=== PATIENT | male | born 1945 | race Caucasian/White ===

== ENCOUNTER 2017-07-05 13:12 | Observation (INO) | payer MEDICARE ==
[~2017-07-05 13:12] MED LIST: Iopamidol 370 76% 100 ML VIAL ONE
[2017-07-05 13:57] LABS: #Basophils 0.1 thou/uL (0.0-0.2); #Eosinphils 0.2 thou/uL (0.0-0.7); #Lymphocytes 2.6 thou/uL (1.20-3.40); #Monocytes 0.4 thou/uL (0.11-0.59); #Neutrophils 2.8 thou/uL (1.40-6.50); %Basophils 1.5 % (0.0-1.0); %Eosinophils 3.7 % (0.0-10.0); %Lymphocytes 41.8 % (21.0-51.0); %Monocytes 7.2 % (0.0-10.0); Hematocrit 48.8 % (42.0-52.0); Mean Platelet Volume 7.1 fL (7.4-10.4); Red Blood Cell (RBC) Count 5.47 mill/uL (4.70-6.10); White Blood Cell (WBC) Count 6.2 thou/uL (4.8-10.8)
[2017-07-05 14:27] LABS: ALT (SGPT) 90 U/L (8-55); AST (SGOT) 82 U/L (5-34); Alkaline Phosphatase 126 U/L (40-150); Anion Gap 13 mmol/L (10-20); BUN (Urea Nitrogen) 12 mg/dL (8.4-25.7); Bilirubin, Total 0.9 mg/dL (0.2-1.2); Calc. Creatinine Clearance 0 mL/min (70-130); Calcium 9.3 mg/dL (7.8-10.44); Carbon Dioxide 23 mmol/L (23-31); Chloride 106 mmol/L (98-107); Estimated GFR-MDRD 72; Magnesium 2.2 mg/dL (1.6-2.6); Protein, Total 6.9 g/dL (5.8-8.1)
[2017-07-05 14:28] LABS: Troponin I Less than 0.010 ng/mL (< 0.028)
--- NOTE | 2017-07-05 14:39 | RAD ---
CHEST 1 VIEW: HISTORY: Shortness of breath. COMPARISON: None. FINDINGS: Lungs are clear. No pneumothorax or effusion. Cardiac silhouette and mediastinal contours are with in normal limits. No acute osseous abnormality. IMPRESSION: No acute intrathoracic abnormality. POS: [facility]
[2017-07-05] MEDS ORDERED: Mag-Al 1200 mg/1200 mg/30 ML UDCUP PO PRN (17:06)
[2017-07-05] MEDS ORDERED: Sodium Chloride 0.65% Nasal 44 ML BOT EA NARE PRN (17:06)
[2017-07-05] MEDS ORDERED: Loperamide HCl 2 MG CAP PO PRN (17:06)
[2017-07-05] MEDS ORDERED: Senokot 8.6 MG TAB PO PRN (17:06)
[2017-07-05] MEDS ORDERED: Milk Of Magnesia 30 ML UDCUP PO PRN (17:06)
[2017-07-05] MEDS ORDERED: Ondansetron HCl/PF 4 MG/2 ML Vial IVP PRN (17:06)
[2017-07-05] MEDS ORDERED: Ondansetron ODT 4 MG TAB PO PRN (17:06)
[2017-07-05] MEDS ORDERED: Nitroglycerin 0.4 MG TAB (25 Tab Bottle) SL PRN (17:06)
[2017-07-05] MEDS ORDERED: Eucerin (Mineral Oil/Petrolatum,White) 30 gm Jar TOP PRN (17:06)
[2017-07-05] MEDS ORDERED: Loratadine 10 MG TAB PO PRN (17:06)
[2017-07-05] MEDS ORDERED: HYDROcodone/Acetaminophen 5/325 mg Tablet PO PRN (17:06)
[2017-07-05] MEDS ORDERED: Zolpidem Tartrate 5 MG TAB PO PRN (17:06)
[2017-07-05] MEDS ORDERED: Diabetic Tussin 200 MG/10 ML UDCUP PO PRN (17:06)
[2017-07-05] MEDS ORDERED: Acetaminophen 325 MG TAB PO PRN (17:06)
[2017-07-05 17:12] VITALS: BMI 36.7
[2017-07-05] MEDS ORDERED: Aspirin 325 MG TAB PO SCH (17:30)
[2017-07-05 18:35] LABS: Troponin I Less than 0.010 ng/mL (< 0.028)
--- NOTE | 2017-07-05 19:52 | CT ---
CT OF THE BRAIN WITHOUT CONTRAST: 07/05/17 COMPARISON: None. HISTORY: Headache. TECHNIQUE: Multiple contiguous axial images were obtained in a CT of the brain without contrast. FINDINGS: The brain is normal in morphology and attenuation without focal lesions or confluent areas of infarc tion. There is no evidence of hydrocephalus, intracranial hemorrhage or extra-axial fluid collection . The calvarium and overlying soft tissues are unremarkable. The visualized paranasal sinuses and mast oid air cells are well aerated. IMPRESSION: No evidence of acute intracranial abnormality. POS: [facility]
--- NOTE | 2017-07-05 20:04 | CT ---
CTA OF THE CHEST WITH CONTRAST 07/05/17 COMPARISON: None. HISTORY: Elevated D-dimer and syncope. TECHNIQUE: Multiple contiguous axial images were obtained in a CTA of the chest with contrast per pulmonary emb olism protocol. 3D oblique MIP reformats and direct coronal reformats were performed. FINDINGS: The pulmonary arteries are well opacified without filling defects to suggest pulmonary emboli. Calci fications are seen in the coronary arteries. No hilar or mediastinal lymphadenopathy are seen. The heart is upper limits of normal in size. No focal infiltrates are seen in the lungs. No pneumothorax or pleural effusion are seen. No suspici ous pulmonary masses present. The visualized subdiaphragmatic structures are unremarkable. The patient is status post cholecystect oliverio. Degenerative changes and postsurgical changes are seen in the spine. IMPRESSION: No evidence of pulmonary thromboembolism. POS: [facility]
[2017-07-05] MEDS ORDERED: Famotidine 20 MG TAB PO SCH (21:00)
--- NOTE | 2017-07-05 21:16 | HP ---
PRIMARY CARE PHYSICIAN: Devaughn Ford M.D. REASON FOR ADMISSION: Syncope, dyspnea, and dizziness on exertion. HISTORY OF PRESENT ILLNESS: A 71-year-old male who has a history of headache on the right side of o ccipitoparietal area as well as neck pain. This is going on for about a week or two. The patient s aw primary care physician. At that time, patient was also having some facial rash on the left side of face and that is why patient was given Augmentin. With antibiotic therapy, rash was improved, bu t patient's headache was not improving. Patient requested CT brain to primary care physician, but h e was instructed to wait until antibiotic therapy is over. At this point, patient is still feeling on and off dull pain on his right side of scalp as well as on the neck. Yesterday, the patient was working with his horses and he all of suddenly felt dizzy, diaphoreses, a nd shortness of breath. Patient has to come to his home and he was rested. He took some aspirin an d whole day he rested at home. He did not have any further that episode. He denies any chest pain, but he was feeling uneasiness. He denies any palpitation. He denies complete loss of consciousnes s. He denies any fever or cough. He denies any constipation, diarrhea, melena, hematochezia. Today, he came to the emergency room for evaluation. This patient in the emergency room when the nu rse was taking IV, at that time, patient again passed out for 15 seconds and that was witnessed sync opal episode by nurses. Patient was diaphoretic, nauseated and he was also feeling funny in his [facility]. Initial evaluation in the emergency room including chest x-ray and blood test was unremarkable. At this point, we are admitting this patient for further evaluation. This patient does not have any fo sonia neurological deficit. He denies any seizure activity. He denies any orthopnea, PND or leg swel ling. He denies any fever or chills. He denies any UTI symptoms. REVIEW OF SYSTEMS: The following complete review of systems was negative, unless otherwise mentione d in the HPI or below: Constitutional: Weight loss or gain, ability to conduct usual activities. Skin: Rash, itching. Eyes: Double vision, pain. ENT/Mouth: Nose bleeding, neck stiffness, pain, tenderness. Cardiovascular: Palpitations, dyspnea on exertion, orthopnea. Respiratory: Shortness of breath, wheezing, cough, hemoptysis, fever or night sweats. Gastrointestinal: Poor appetite, abdominal pain, heartburn, nausea, vomiting, constipation, or diar andres. Genitourinary: Urgency, frequency, dysuria, nocturia. Musculoskeletal: Pain, swelling. Neurologic/Psychiatric: Anxiety, depression. Allergy/Immunologic: Skin rash, bleeding tendency. Please see my HPI for pertinent positive and negative. All other review of systems reviewed and neg ative except as mentioned in the HPI. PAST MEDICAL HISTORY: The patient denies any previous medical history. MEDICATIONS: Patient is not taking any medication. PAST SURGICAL HISTORY: Laminectomy in thoracic vertebra, tonsillectomy when he was kid, circumcisio n, cholecystectomy. PAST PSYCHIATRIC HISTORY: Reviewed and negative. SOCIAL HISTORY: Patient is . His is present at bedside in the emergency room. No hist ory of tobacco, alcohol or illicit drug abuse. FAMILY HISTORY: The patient's father had history of [place]. No strong family history of cancer or stro ke. ALLERGIES: No known drug allergies. CURRENT HOME MEDICATIONS: The patient is not taking any prescribed or non-prescribed medication. EMERGENCY ROOM COURSE: Reviewed. PHYSICAL EXAMINATION: VITAL SIGNS: On arrival, blood pressure 161/89, pulse 79, respiratory rate 16, temperature 98.2, sa turation 94% on room air, weight 115.6 kilograms. GENERAL: Patient is currently alert, awake, no obvious acute distress. HEAD: Normocephalic, atraumatic. EYES: Pupils round, reactive to light. Extraocular muscle intact. ENT: Oropharynx within normal limits. Moist mucous membranes. No oral lesions. No pharyngeal staci thema, no exudate. NECK: Supple. Range of motion is normal. No meningeal signs of irritation. LUNGS: Clear to auscultation without any rhonchi or rales. CARDIAC: S1 and S2 regular without any murmur. ABDOMEN: Soft, bowel sounds present, obesity present. No organomegaly, no mass, no suprapubic tend erness. BACK: Examination unremarkable, no CVA tenderness. EXTREMITIES: Upper extremity passive movements of all joints are normal. Lower extremity, no edema . Good peripheral pulsation. No calf tenderness. NEUROLOGIC: The patient is alert, oriented x3. Speech, normal. Motor 5/5 in all four limbs. Sens ation bilaterally symmetrical. Reflexes bilaterally symmetrical. Plantar bilateral flexor. PSYCHIATRIC: Normal affect. SKIN: No skin rash. HEMATOLOGICAL SYSTEM: No lymphadenopathy. IMAGING AND LABORATORY DATA: 1. EKG based on my review reveals normal sinus rhythm within normal limits. Chest x-ray based on m y review, no acute cardiopulmonary process. 2. CBC: WBC 6.2, hemoglobin 16.2, platelets 186. 3. BMP: Sodium 138, potassium 3.8, chloride 106, carbon dioxide 23, anion gap 13, BUN 12, creatini ne 1.03, glucose 110, and calcium 9.3. 4. Magnesium 2.2. 5. LFT: AST 82, ALT 19, alkaline phosphatase 126, albumin 3.9. 6. CK 61, CK-MB 1.4, troponin I less than 0.010, BNP 21.2. ASSESSMENT AND PLAN/IMPRESSION: 1. Syncope. This patient has witnessed an episode of syncope in the emergency room, suspected for orthostatic hypotension, but underlying arrhythmia cannot be entirely excluded, though when this pat ient had a syncopal episode, at that time zinc skimmer was surprisingly normal, but when they c hecked vitals, at that time his blood pressure was low in the emergency room. At this point, we dana l check orthostatic vitals. We will monitor on telemetry floor. This patient has second episode of similar problem and that is why we will closely monitor on telemetry floor. We will obtain echocar diography to assess ejection fraction and other structural abnormality. We will do serial cardiac e nzymes x3. We will also check D-dimer to rule out any thromboembolic disorder. If D-dimer is abnor mal, then we will perform CT angio chest. If D-dimer is negative and thromboembolic disorder is exc luded, then we will consider doing exercise Cardiolite stress test tomorrow morning to rule out unde rlying ischemia. We will check lipid profile for risk stratification. 2. Headache. Patient has a right-sided unilateral headache which has not improved for over a coupl e of weeks. At this point, we will obtain CT brain for further evaluation. Patient does not have a ny focal neurological deficit at this point. 3. Morbid obesity. Dietary education given, weight loss education given. Healthy lifestyle measur es discussed with the patient. 4. Hypertension without previous history of hypertension. When he presented to emergency room, he was hypertensive, but we will not start any antihypertensive medication at this point, but we will m onitor his vitals in hospital and if needed, we will start antihypertensive medication based on the readings. 5. Deep venous thrombosis prophylaxis not needed at this point because of low risk. 6. Gastrointestinal prophylaxis, Pepcid 20 mg p.o. b.i.d. 7. Code status: The patient is FULL CODE. The patient's is surrogate decision maker. Disposition plan based on clinical course. We are expecting patient's stay in hospital 24 hours. W e will keep as observation status. ADDENDUM: His D-dimer is elevated and that is why we are going to do CT angio chest to rule out PE. At the [facility] time, we will obtain CT brain with IV contrast. Transaminitis, likely related with fatty liver, but we will repeat LFT tomorrow and will also check hepatitis profile to rule out any hepatitis.
[2017-07-06 04:59] LABS: #Basophils 0.1 thou/uL (0.0-0.2); #Eosinphils 0.2 thou/uL (0.0-0.7); #Lymphocytes 2.9 thou/uL (1.20-3.40); #Monocytes 0.5 thou/uL (0.11-0.59); #Neutrophils 2.9 thou/uL (1.40-6.50); %Basophils 1.2 % (0.0-1.0); %Eosinophils 2.8 % (0.0-10.0); %Monocytes 8.2 % (0.0-10.0); Hematocrit 48.8 % (42.0-52.0); Mean Platelet Volume 7.2 fL (7.4-10.4); Red Blood Cell (RBC) Count 5.42 mill/uL (4.70-6.10); White Blood Cell (WBC) Count 6.6 thou/uL (4.8-10.8)
[2017-07-06 05:29] LABS: ALT (SGPT) 85 U/L (8-55); AST (SGOT) 69 U/L (5-34); Alkaline Phosphatase 123 U/L (40-150); Anion Gap 12 mmol/L (10-20); BUN (Urea Nitrogen) 12 mg/dL (8.4-25.7); Calc. Creatinine Clearance 140 mL/min (70-130); Calcium 9.1 mg/dL (7.8-10.44); Carbon Dioxide 23 mmol/L (23-31); Chloride 106 mmol/L (98-107); Cholesterol 245 mg/dl (< 200 Desired); Estimated GFR-MDRD Greater than 90; Globulin 2.8 g/dL (2.4-3.5); LDL Cholesterol, Calculated 164 mg/dL; Protein, Total 6.4 g/dL (5.8-8.1)
[2017-07-06 08:07] VITALS: TEMP 97.7
[2017-07-06] MEDS ORDERED: Aspirin 325 MG TAB PO SCH (09:00)
--- NOTE | 2017-07-06 11:15 | ULT ---
ULTRASOUND CAROTID DOPLER: HISTORY: Syncope. COMPARISON: None. TECHNIQUE: Real-time, carrasco scale, and color evaluation of the extracranial carotid arteries and vertebral arter ies is performed using a linear ray transducer. Left vertebral artery not well seen. Antegrade steph w right vertebral artery. No elevated peak systolic velocity to suggest hemodynamically significant stenosis in the internal carotid arteries. Right ICA/CCA ratio is 0.68 and left ICA/CCA ratio is 0.77. IMPRESSION: 1. Poor visualization of the left vertebral artery. CT angiogram would be necessary to fully evalu ate this artery. 2. No hemodynamically significant stenosis in the internal carotid arteries bilaterally. POS: [facility]
[2017-07-06 12:47] VITALS: BP 137/69
--- NOTE | 2017-07-06 14:11 | NM ---
NUCLEAR MEDICINE CARDIAC PERFUSION EXAMINATION WITH EJECTION FRACTION: HISTORY: 71-year-old female with syncope and chest discomfort. Family history of coronary artery disease. TECHNIQUE: A single day nuclear medicine cardiac perfusion examination was performed. Rest images were obtained using 9.9 mCi of technetium-99m sestamibi. Stress images were obtained giving 27.2 mCi of technetiu m-99m sestamibi at the peak of exercise on a treadmill using a Jaren protocol. The patient achieved 90% maximum predicted heart rate. FINDINGS: Tomographic images show no fixed or reversible perfusion defects. Gated images show normal wall marcellus on with an ejection fraction of 56%. EDV: 125 ml LHR: 0.3 TID: 1.1 IMPRESSION: No evidence of ischemia. POS: [facility]
--- NOTE | 2017-07-06 18:57 | DIS ---
DATE OF ADMISSION: 07/05/2017 DATE OF DISCHARGE: 07/06/2017 CONDITION AT THE TIME OF DISCHARGE: Stable and improved. DISCHARGE DIAGNOSES: 1. Syncopal episode of unclear etiology, likely hypotension. 2. Dyslipidemia. 3. Transient transaminitis, likely fatty liver disease. DISCHARGE FOLLOWUP: With Cardiology, Dr. Mesfin Cazares for event monitor setup. PRIMARY CARE PHYSICIAN: Dr. Devaughn Ford. DISCHARGE MEDICATIONS: None. PROCEDURES DONE IN THE HOSPITAL: Include; 1. CT scan of the brain, which is negative for any acute intracranial abnormality. Paranasal sinus es and mastoid air cells are well aerated. 2. CT angio of the thorax, which has no evidence of pulmonary thromboembolism and no focal infiltra raj seen in the lungs. No suspicious pulmonary masses. 3. Nuclear medicine stress test, which shows no evidence of ischemia, no fixed or reversible defect seen. 4. Carotid Doppler ultrasound, which is negative for any right-sided flow obstruction. No hemodyna mically significant stenosis in the internal carotid arteries bilaterally, but left vertebral artery is not properly visualized. 5. Transthoracic echocardiogram, which showed an EF estimated at 45% to 50%, grade 1/3 diastolic dy sfunction with mild mitral, aortic, and tricuspid regurgitation and mild hypokinesis of the inferior wall. ADMISSION HISTORY: Mr. Howard Padgett is a very pleasant 71-year-old male without any significant past medical history who presented to the ER with complaints of some dizziness. He reported that he had a headache on the right side of the occipital and parietal area as well as neck pain for about a wee k or 2 prior to presentation. He also had some swelling below the left eye of his face and was pres cribed Augmentin by his primary care physician. Prior to presentation, he felt dizzy and got diapho retic and short of breath, and presented to the ER. He had one episode of passing out for 15 second s in the ER when his heart monitor did not read any arrhythmias. His blood pressure was somewhat lo w in the emergency room and he was admitted for further evaluation. Please see admission history an d physical for further details. His cardiac enzymes and EKG were normal upon presentation. HOSPITAL COURSE: The patient had a rather unremarkable hospital course. His orthostatics were chec ked multiple times and he was not found to be orthostatic. His blood pressure did fluctuate between 100s to 150s systolic. He underwent a very thorough workup as above including a CT scan of the bra in. He underwent cardiac workup with a nuclear medicine stress test and transthoracic echocardiogra m and both were rather unremarkable. He did have an elevated D-dimer and underwent CT angio of the thorax, which was negative for any PE. He also underwent carotid Doppler ultrasound, which was nega tive for any internal carotid artery stenosis. The left vertebral artery was not visualized properl y and he will get outpatient CT angio of the neck for this reason. At this time, no clear clue is evident as to his passing out in the emergency room. Because of his labile blood pressure and low blood pressure upon presentation, no antihypertensives are being start ed at this time. At this time, either cervical spinal stenosis or cardiac arrhythmia cannot be ruled out. I have req uested the patient to get an outpatient CT scan of the cervical spine as well as a CT angio of the n mishel to evaluate the vertebral arteries. He will also call flux core welder's office early next week to be set up for event monitor. I have discussed this with the on-call flux core welder and have given him a referral for the same. At this time, he is hemodynamically stable and no further inpatient abhijit p is warranted. I have answered the questions and discussed the discharge plan in detail with the p atrohit and his family, and he has received orders for CT scan of the cervical spine as well as CT an ailyn of the neck with and without contrast from me today. Prior to discharge, he was seen and examined. PHYSICAL EXAMINATION: VITAL SIGNS: Temperature 97.7, pulse of 65, respirations 18, saturating 97% on room air. Blood pre ssure, supine 150/69, sitting 137/69, and standing 148/76. GENERAL: No acute distress. Awake, alert, oriented x3. CHEST: Clear to auscultation without any wheezing, rales, or rhonchi. Rate and rhythm is regular w ithout any murmur, rubs, or gallops. ABDOMEN: Moderately obese, soft, nontender, nondistended. EXTREMITIES: Free of any cyanosis, clubbing, or edema. LABORATORY DATA: 1. D-dimer is 0.46. 2. CBC unremarkable. 3. Serum chemistry shows AST at 69, ALT 85 with normal total bilirubin and alkaline phosphatase. T roponin less than 0.010 x2. BNP normal. CK-MB normal. His triglycerides are elevated at 177 and t otal cholesterol was elevated at 245. Dietary discretion is advised for the patient. Elevated ruelas saminitis likely secondary to fatty infiltration of the liver. Follow up with primary care physician in 7-10 days.
== END 2017-07-06 15:06 | disposition home or self-care (01) ==
LOC: ERS 13:12 → 2SW 15:27
PROVIDERS: ADMIT Internal Medicine; ATTEND Internal Medicine
DX: R55 Syncope and collapse (principal); E78.5 Hyperlipidemia, unspecified; R74.0 Nonspecific elevation of levels of transaminase and lactic acid dehydrogenase [LDH]; M54.2 Cervicalgia; R07.89 Other chest pain; R51 Headache; R78.89 Finding of other specified substances, not normally found in blood; Z90.49 Acquired absence of other specified parts of digestive tract; Z90.89 Acquired absence of other organs; Z98.890 Other specified postprocedural states; Z82.49 Family history of ischemic heart disease and other diseases of the circulatory system
CPT/HCPCS: 70450; 71010; 71275; 78452; 80053 ×2; 80061; 80074; 82550; 82553; 83735; 83880; 84484 ×2; 85025 ×2; 85379; 93005; 93017; 93306; 93880; 99285; A9500; G0378; 36415

== ENCOUNTER 2017-07-12 10:34 | Outpatient (CLI) | payer MEDICARE ==
--- NOTE | 2017-07-12 13:40 | CT ---
CT ANGIOGRAM NECK: HISTORY: Right neck and head pain. Evaluate for chronic stenosis. COMPARISON: None. TECHNIQUE: Post contrast CT angiogram of the neck is performed in the axial plane, and 3-dimensional reformatte d images are submitted for interpretation. FINDINGS: The visualized brain parenchyma is unremarkable. The aerodigestive tract is patent. No mucosal abnormality. Limited evaluation of the oral cavity d ue to dental amalgam artifact. Midline fatty raphe of the tongue is preserved. There is mass effect upon the posterior bigxs-emwznju-jetr-left hypopharynx and supraglottic larynx due to medial deviation of the carotid arteries. Adequate aeration of the sinuses and mastoid air cells. Symmetric attenuation of the sternocleidomastoid muscles. There are scattered nonspecific, nonenlar ged bilateral soft tissue neck lymph nodes. Symmetric attenuation of the parotid and submandibular glands. The thyroid gland is unremarkable. Varying degrees of central canal stenosis and foraminal narrowing. Refer to cervical spine CT repor t for further details. The upper mediastinum and lung apices are unremarkable. Mild emphysematous change of the lung apice s. CT ANGIOGRAM: The aortic arch has an overall normal caliber. RIGHT CAROTID: The innominate artery has appropriate enhancement and luminal diameter. The right c ommon carotid artery, the carotid bifurcation, and the internal carotid artery have appropriate enha ncement and luminal diameter. A small amount of calcified and noncalcified plaque in the distal rig ht common carotid artery and carotid bifurcation, without significant stenosis, based on NASCET crit eria. LEFT CAROTID: The left carotid artery origin has appropriate enhancement and luminal diameter. The left common carotid artery, carotid bifurcation and the internal carotid artery have appropriate en hancement and luminal diameter. No significant stenosis based on NASCET criteria. The right vertebral artery origin is suboptimally evaluated. The left vertebral artery appears to o riginal from the aortic arch and incompletely evaluated. The right vertebral artery is dominant. N o evidence of high grade stenosis in the right or left vertebral arteries. IMPRESSION: No significant stenosis based on NASCET criteria. POS: [facility]
--- NOTE | 2017-07-12 13:42 | CT ---
CERVICAL SPINE CT WITHOUT CONTRAST: HISTORY: Right-sided neck pain. Spinal stenosis. Previous laminectomy. COMPARISON: None. TECHNIQUE: Cervical spine CT is performed without contrast. Reformatted images are submitted for interpretatio n. FINDINGS: Cervical spine vertebral body height is maintained. There is no evidence of fracture. Straightenin g of normal cervical lordosis is noted. Visualized soft tissue neck structures are unremarkable. Mass effect upon the posterior left and ri ght supraglottic larynx and hypopharynx due to medial deviation of the carotid arteries, right great er than left. Upper mediastinum and lung apices are unremarkable. Cervical spine vertebral body height is maintained. There is no fracture. Coronal reformatted imag es demonstrate appropriate alignment of the lateral masses of C1 and C2. Odontoid process is intact . Limited evaluation of the contents of the central spinal canal and neural foramen due to technique. C2-C3: Central disk-osteophyte complex abuts the thecal sac. No significant central canal stenosis . Neural foramen are patent. C3-C4: Broad-based disk-osteophyte complex abuts the thecal sac. Mild central canal stenosis. Mil d bilateral foraminal narrowing. C4-C5: Broad-based disk-osteophyte complex with a left paracentral component. Moderate central can al stenosis. Degenerative change bilateral uncovertebral joints results in moderate right and moder ate to severe left foraminal narrowing. C5-C6: Broad-based disk-osteophyte complex results in moderate central canal stenosis. Degenerativ e change in bilateral uncovertebral joints results in severe bilateral foraminal narrowing. C6-C7: Broad-based disk-osteophyte complex results in moderate central canal stenosis. Moderate to severe bilateral foraminal narrowing. C7-T1: No high-grade central canal stenosis. Mild bilateral foraminal narrowing. IMPRESSION: Degenerative change of the cervical spine as above. No fracture. POS: [facility]
== END 2017-07-12 10:35 | disposition home or self-care (01) ==
LOC: CT 10:34
PROVIDERS: ATTEND Internal Medicine
DX: M48.02 Spinal stenosis, cervical region (principal); I65.29 Occlusion and stenosis of unspecified carotid artery; M47.892 Other spondylosis, cervical region
CPT/HCPCS: 70498; 72125

== ENCOUNTER 2017-08-13 08:33 | Outpatient (CLI) | payer MEDICARE ==
[2017-08-13] MEDS ORDERED: Gadobenate Dimeglumine 529 MG/1 ML (20ML VIAL) ONE (09:00)
--- NOTE | 2017-08-13 15:29 | MRI ---
MRI OF THE CERVICAL SPINE WITHOUT CONTRAST 08/13/2017 COMPARISON: None. HISTORY: Chronic neck pain radiating down the right shoulder/arm/hand for 2-3 months. TECHNIQUE: Multiplanar, multisequence MR imaging of the cervical spine provided without contrast. FINDINGS: The sagittal STIR imaging demonstrates no focal area of osseous marrow edema. There is mild degenerative changes at the atlantoaxial interspace. There is no prevertebral soft ti ssue abnormality. C2-3: Bilateral facet hypertrophy noted, left greater than right. There is no significant central canal or neural foraminal stenosis. C3-4: There is disk space narrowing, disk desiccation, and disk bulge effacing the ventral thecal s ac and abutting the ventral aspect of the cord with mild central canal stenosis. Mild bilateral fac et hypertrophy, left greater than right. Mild left neural foraminal stenosis. No significant centr al canal stenosis. C4-5: There is disk space narrowing, disk desiccation, and mild disk bulge partially effacing the v entral thecal sac and abutting the ventral aspect of the cervical cord with mild central canal steno sis. There is prominent left-sided facet and uncovertebral osteophyte formation with moderate left neural foraminal stenosis. No significant right neural foraminal stenosis noted. C5-6: There is disk space narrowing, disk desiccation, and disk bulge effacing the ventral thecal s ac and abutting the ventral aspect of the cord. There is moderate associated central canal stenosis . There is bilateral facet and uncovertebral osteophyte formation, left greater than right, with mo derate bilateral neural foraminal stenosis, left greater than right. C6-7: There is disk space narrowing and disk desiccation with anterior osteophyte formation and deg enerative endplate change. Mild disk osteophyte complex causes mild central canal stenosis. Bilate ral facet and uncovertebral osteophyte formation noted with mild/moderate bilateral neural foraminal stenosis, right greater than left. C7-T1: Disk desiccation and disk space narrowing with mild disk bulge causes mild central canal sten osis. There is a small left paracentral disk protrusion with associated mild central canal stenosis. On t he basis of facet and uncovertebral osteophyte formation, there is moderate bilateral neural foramin al stenosis, left greater than right. There is no focal area of abnormal signal intensity identified within the cervical cord. IMPRESSION: Multilevel degenerative change within the cervical spine as detailed above. POS: [facility]
--- NOTE | 2017-08-13 16:06 | MRI ---
THORACIC SPINE MRI WITH AND WITHOUT CONTRAST 08/13/2017 COMPARISON: Thoracic spine MRI 10/29/2012, lumbar spine MRI with and without contrast 01/30/2013. 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 Chronic neck pain, chronic right upper extremity radicu lopathy. TECHNIQUE: Multiplanar, multisequence MR imaging of the thoracic spine obtained with and without contrast. FINDINGS: The sagittal STIR imaging demonstrates no focal area of osseous marrow edema in the thoracic spine. There is evidence of prior laminectomy at the T9 through T11 levels, a stable finding. No significant anterolisthesis or retrolisthesis is seen within the thoracic spine. T1-2: There is disk space narrowing, disk desiccation, and a small central disk protrusion with no significant central canal or neural foraminal stenosis. T2-3: No significant central canal or neural foraminal stenosis. T3-4: No significant central canal or neural foraminal stenosis. T4-5: No significant central canal or neural foraminal stenosis. Mild bilateral facet hypertrophy. T5-6: Mild bilateral facet hypertrophy. No significant central canal or neural foraminal stenosis. T6-7: There is disk space narrowing and a small disk protrusion in the left paracentral/left forami nal region. There is mild associated left neural foraminal stenosis. No significant central canal or right neural foraminal stenosis. T7-8: No significant central canal or neural foraminal stenosis. T8-9: There is disk space narrowing, disk desiccation, and disk bulge with partial effacement of th e ventral thecal sac and mild associated central canal stenosis, not significantly changed when comp ared to the prior exam. Mild bilateral neural foraminal stenosis noted. T9-10: There is disk space narrowing, disk desiccation, and a central/right paracentral disk hernia tion and or prominent osteophyte, similar when compared to the prior exam. This causes a mild degre e of central canal stenosis, primarily right-sided. No significant neural foraminal stenosis noted. T10-11: There is disk space narrowing, disk desiccation, and disk bulge. Disk material abuts the t horacic cord with severe central canal stenosis and probable subtle increased T2 signal within the t horacic cord at this level, similar when compared to the prior exam. There is bilateral facet hyper trophy with a mild degree of bilateral neural foraminal stenosis. T11-12: Disk space narrowing, disk desiccation, and disk bulge present with partial effacement of t he ventral thecal sac and mild central canal stenosis, similar when compared to prior imaging. No s ignificant neural foraminal stenosis noted on either side. T12-L1: There is disk space narrowing, disk desiccation, and disk bulge with a superimposed left pa racentral disk protrusion, similar when compared to the prior exam. There is mild left-sided centra l canal stenosis. No significant neural foraminal stenosis. 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 This lesion is stable in size and location when compared to 2013 imaging. Again, it is of increased signal intensity on the pre-cont rast and post-contrast T1-weighted imaging. It demonstrates slight loss of signal along its periphe ry on the fat-saturated STIR imaging and the pre-contrast T1 fat-saturated axial imaging, again sugg esting a fat-containing lesion. The post-contrast imaging demonstrates no abnormal enhancement involving the imaged vertebral body o r intervertebral disks. IMPRESSION: 1. 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 2. 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 POS: [facility]
== END 2017-08-13 08:34 | disposition home or self-care (01) ==
LOC: MRI 08:33 → SCSMRI 08:34
PROVIDERS: ATTEND Neurological Surgery
DX: M47.24 Other spondylosis with radiculopathy, thoracic region (principal); M48.04 Spinal stenosis, thoracic region; M47.22 Other spondylosis with radiculopathy, cervical region
CPT/HCPCS: 72141; 72157; A9579

== ENCOUNTER 2017-12-18 06:58 | Outpatient (CLI) | payer MEDICARE ==
[2017-12-18] MEDS ORDERED: Iopamidol 370 76% 100 ML VIAL ONE (07:26)
[2017-12-18] MEDS ORDERED: Gadobenate Dimeglumine 529 MG/1 ML (20ML VIAL) ONE (07:33)
--- NOTE | 2017-12-18 09:30 | MRI ---
MRI BRAIN WITH AND WITHOUT CONTRAST: Date: 12/18/17 Multiplanar, multisequential imaging of brain obtained. Postcontrast images were obtained with admini stration of 20 mL MultiHance IV. Thin 3.0 mm sections were obtained through the brainstem as requeste d by the ordering physician. HISTORY: Diplopia. FINDINGS: Ventricles have normal size and position. There is mild cortical volume loss. No significant white ma tter abnormality. No evidence of restricted diffusion. No abnormal enhancement. No mass or edema. Intracranial internal carotid arteries and proximal cerebral arteries show normal flow-voids. Basilar artery is patent. Dural venous sinuses appear patent. IMPRESSION: Unremarkable MRI brain. POS: [facility]
--- NOTE | 2017-12-18 09:31 | CT ---
CT ANGIO NECK WITH CONTRASTS: Technique: Multiple axial tomograms were obtained through the neck with IV enhancement in the arteria l phase, multiplanar reconstruction, and 3D post processing. History: Double vision. FINDINGS: No evidence of stenosis at the origin of the arch vessels. Right common carotid is unremarkable. There is atherosclerotic calcified plaque at the origin of the right ICA. However, no significant glendy nosis is identified. Right ICA is unremarkable. Left common carotid is patent with no significant disease. Mild soft plaque at the left bulb and proximal left ICA, however, no significant stenosis. The right vertebral artery is patent throughout with no significant stenosis. The left vertebral is n ot visualized proximally. The left vertebral reconstitute via collaterals at the C3 level and termina raj in PICA. No soft tissue abnormality identified. IMPRESSION: 1. Bilateral atherosclerotic disease at both bulbs as described above. No evidence of significant car otid stenosis identified. POS: [facility]
== END 2017-12-18 06:59 | disposition home or self-care (01) ==
LOC: MRI 06:58
PROVIDERS: ATTEND Psychiatry & Neurology Neurology
DX: H53.2 Diplopia (principal); I65.23 Occlusion and stenosis of bilateral carotid arteries
CPT/HCPCS: 70498; 70553; A9579

== ENCOUNTER 2022-03-13 07:44 | Inpatient (IN) | payer MEDICARE ==
[2022-03-13 08:22] LABS: Hemoglobin 16.6 g/dL (14.0-18.0); Mean Corpuscular HGB CONC 33.5 g/dL (32.0-36.0); Mean Corpuscular Hemoglobin 30.6 pg (27.0-31.0); Mean Corpuscular Volume 91.4 fL (78.0-98.0); RBC Distribution Width 12.3 % (11.5-14.5); Red Blood Cell (RBC) Count 5.44 mill/uL (4.70-6.10)
[2022-03-13 08:38] LABS: PTT 32.9 sec (22.9-36.1)
[2022-03-13 08:41] LABS: ALT (SGPT) 43 U/L (8-55); AST (SGOT) 36 U/L (5-34); Albumin 3.7 g/dL (3.4-4.8); Alkaline Phosphatase 104 U/L (40-110); Anion Gap 12 mmol/L (10-20); BUN (Urea Nitrogen) 18 mg/dL (8.4-25.7); Bilirubin, Total 0.7 mg/dL (0.2-1.2); Calc. Creatinine Clearance 0 mL/min (70-130); Calcium 9.4 mg/dL (7.8-10.44); Carbon Dioxide 25 mmol/L (23-31); Chloride 105 mmol/L (98-107); Globulin 3.1 g/dL (2.4-3.5); Glucose 138 mg/dL (83-110); Potassium 4.1 mmol/L (3.5-5.1); Protein, Total 6.8 g/dL (5.8-8.1); Sodium 138 mmol/L (136-145)
[2022-03-13] MEDS ORDERED: Aspirin Chewable 81 MG TAB ONE (08:42)
[2022-03-13 08:51] LABS: Band 1 % (5-11); Eosinophils 1 % (0-10); Lymphocytes 49 % (21-51); MDiff Complete? YES; Mean Platelet Volume 7.3 fL (7.4-10.4); Monocytes 7 % (0-10); Neutrophil 39 % (42-75); Platelet Count 150 thou/uL (130-400); Platelet Morphology Comment Appears Adequate; Reactive Lymphocytes 2 % (0-10); White Blood Cell (WBC) Count 6.2 thou/uL (4.8-10.8)
[2022-03-13 09:01] LABS: Bacteria/HPF None Seen HPF (None Seen); Bilirubin Negative (Negative); Blood, Urine 1+ (Negative); Clarity Clear (Clear); Glucose, Urine (Dipstick) Normal (Negative); Ketone, Urine Negative (Negative); Leukocyte Negative Leu/uL (Negative); Nitrite Negative (Negative); Protein, Urine (Dipstick) Negative (Neg-Trace); RBC/HPF 0-3 HPF (0-3); Squamous Epithelial None Seen HPF (0-3); Urobilinogen Normal mg/dL (Less than 2); WBC/HPF 0-3 HPF (0-3)
[2022-03-13 09:01] LABS: Acetaminophen Less than 10.0 mcg/mL (10.0-30.0); Alcohol Less than 10 mg/dL (Less than 10); CK (CPK) 63 U/L (30-200); Salicylate Less than 8.0 mg/dL (15.0-30.0)
[2022-03-13 09:07] LABS: Amphetamine Not Detected (NotDetected); Barbiturates Screen Not Detected (NotDetected); Benzodiazepine Screen Not Detected (NotDetected); Cocaine Metabolite Screen Not Detected (NotDetected); Methadone Not Detected (NotDetected); Methamphetamine Not Detected (NotDetected); Opiate Screen Not Detected (NotDetected); Oxycodone Screen Not Detected (NotDetected); Phencyclidine (PCP) Not Detected (NotDetected); THC/Cannabinoid Screen Not Detected (NotDetected); Tricyclic Screen Not Detected (NotDetected)
[2022-03-13] MEDS ORDERED: Iopamidol-370 76% 500 ML 1 ML ONE (10:35)
[2022-03-13] MEDS ORDERED: Calcium Carbonate 500 MG ChewTAB PO PRN (10:44)
[2022-03-13] MEDS ORDERED: Acetaminophen 325 MG TAB PO PRN (10:44)
[2022-03-13] MEDS ORDERED: Acetaminophen 650 MG Suppository PR PRN (10:44)
[2022-03-13] MEDS ORDERED: Ondansetron PF 4 MG/2 ML Vial IVP PRN (10:44)
[2022-03-13] MEDS ORDERED: Ondansetron ODT 4 MG TAB PO PRN (10:44)
[2022-03-13 11:45] LABS: Hemoglobin A1c 5.5 % (4.0-6.0)
[2022-03-13 11:53] LABS: Cardiac Risk 4.7 (Less than 4.5)
[2022-03-13 16:54] VITALS: BMI 38.6
[2022-03-13 18:11] LABS: SARS-CoV-2 NAA Rapid Test Not Detected (NotDetected)
[2022-03-13] MEDS ORDERED: Atorvastatin Calcium 40 MG TAB PO SCH (21:00)
[2022-03-14] MEDS: Aspirin 325 mg Enteric Coated Tablet PO SCH (08:31)
[2022-03-14] MEDS ORDERED: Rosuvastatin 20 MG TAB PO SCH (21:00)
[2022-03-15] MEDS: Aspirin 325 mg Enteric Coated Tablet PO SCH (08:20)
[2022-03-15] MEDS ORDERED: Clopidogrel Bisulfate 75 MG TAB PO SCH (09:00)
[2022-03-15 15:31] VITALS: BP 148/82; TEMP 97.9
== END 2022-03-15 17:52 | disposition home or self-care (01) | DRG 66 ==
LOC: ERS 07:44 → ERHOLD 09:16 → INTOOBSV 09:16 → NEURO 16:25 → OBSVTOIN 03-14 16:43
PROVIDERS: ADMIT Emergency Medicine; ATTEND Emergency Medicine
DX: I63.89 Other cerebral infarction (principal); Z20.822 Contact with and (suspected) exposure to COVID-19; R29.810 Facial weakness; R47.1 Dysarthria and anarthria; R29.702 NIHSS score 2; Z79.82 Long term (current) use of aspirin; G47.33 Obstructive sleep apnea (adult) (pediatric); Z90.49 Acquired absence of other specified parts of digestive tract; Z98.41 Cataract extraction status, right eye; Z98.890 Other specified postprocedural states; Z87.891 Personal history of nicotine dependence
CPT/HCPCS: 36415; 36416; 70450; 70496; 70498; 70551; 71045; 80053; 80061; 80306; 80307; 81003; 81015; 82550; 83036; 84443; 84484; 85025; 85610; 85730; 93005; 93306; 94760; G0378; Q9967; U0002

== ENCOUNTER 2024-08-31 11:40 | Inpatient (IN) | payer MEDICARE ==
[~2024-08-31 11:40] MED LIST changes: -Iopamidol 370 76% 100 ML VIAL ONE; +Iopamidol-370 76% 500 ML MDV (1 ML CHARGE) ONE
[2024-08-31 12:18] LABS: %Eosinophils 4.8 % (0.0-10.0); %Lymphocytes 46.8 % (21.0-51.0); %Monocytes 5.7 % (0.0-10.0); %Neutrophils 41.1 % (42.0-75.0); Hematocrit 55.1 % (42.0-52.0); Hemoglobin 18.3 g/dL (14.0-18.0); Mean Corpuscular HGB CONC 33.3 g/dL (32.0-36.0); Mean Corpuscular Hemoglobin 29.1 pg (27.0-31.0); Mean Corpuscular Volume 87.6 fL (78.0-98.0); Mean Platelet Volume 9.8 fL (7.4-10.4); Platelet Count 198 10x3/uL (130-400); RBC Distribution Width 13.8 % (11.5-14.5); Red Blood Cell (RBC) Count 6.28 mill/uL (4.70-6.10)
[2024-08-31 12:26] LABS: Prothrombin Time 12.8 sec (12.0-14.7)
[2024-08-31 12:27] LABS: PTT 33.6 sec (22.9-36.1)
[2024-08-31 12:41] LABS: ALT (SGPT) 11 U/L (8-55); AST (SGOT) 20 U/L (5-34); Albumin 3.8 g/dL (3.4-4.8); Alkaline Phosphatase 109 U/L (40-110); Anion Gap 17 mmol/L (10-20); BUN (Urea Nitrogen) 16 mg/dL (8.4-25.7); Bilirubin, Total 0.7 mg/dL (0.2-1.2); Calc. Creatinine Clearance 0 mL/min (70-130); Calcium 9.4 mg/dL (7.8-10.44); Carbon Dioxide 20 mmol/L (23-31); Chloride 108 mmol/L (98-107); Estimated GFR 83; Globulin 3.8 g/dL (2.4-3.5); Glucose 120 mg/dL (83-110); Potassium 3.8 mmol/L (3.5-5.1); Protein, Total 7.6 g/dL (5.8-8.1); Sodium 141 mmol/L (136-145)
[2024-08-31 12:45] LABS: Troponin I Less than 0.010 ng/mL (< 0.028)
[2024-08-31] MEDS ORDERED: cefTRIAXone (ROCEPHIN) 2 GM VIAL ONE (14:28)
[2024-08-31] MEDS ORDERED: methylPREDNISolone Sod Succ/PF 125 MG/2 ML VIAL ONE (14:28)
[2024-08-31] MEDS ORDERED: Sodium Chloride 0.9% 200 ML ONE (14:28)
[2024-08-31] MEDS ORDERED: Azithromycin 500 MG VIAL ONE (14:28)
[2024-08-31] MEDS ORDERED: Ondansetron PF 4 MG/2 ML Vial IVP PRN (15:03)
[2024-08-31] MEDS ORDERED: Senokot S 8.6-50 MG TAB PO PRN (15:03)
[2024-08-31] MEDS ORDERED: Ondansetron ODT 4 MG TAB PO PRN (15:03)
[2024-08-31] MEDS ORDERED: traMADol HCl 50 MG TAB PO PRN (15:03)
[2024-08-31] MEDS ORDERED: Acetaminophen 325 MG TAB PO PRN (15:03)
[2024-08-31 16:30] VITALS: BMI 33.9
[2024-08-31 18:39] LABS: Hematocrit 52.2 % (42.0-52.0); Hemoglobin 17.4 g/dL (14.0-18.0)
[2024-08-31] MEDS: methylPREDNISolone Sod Succ 40 MG VIAL IVP SCH (20:52)
[2024-09-01 05:23] LABS: #Basophils Less than 0.03 10x3/uL (0.0-0.2); #Eosinophils Less than 0.03 10x3/uL (0.0-0.7); %Basophils 0.1 % (0.0-1.0); %Lymphocytes 14.2 % (21.0-51.0); %Monocytes 0.8 % (0.0-10.0); %Neutrophils 84.6 % (42.0-75.0); Hematocrit 50.2 % (42.0-52.0); Hemoglobin 16.3 g/dL (14.0-18.0); Mean Corpuscular HGB CONC 32.5 g/dL (32.0-36.0); Mean Corpuscular Hemoglobin 28.6 pg (27.0-31.0); Mean Corpuscular Volume 88.2 fL (78.0-98.0); Mean Platelet Volume 10.4 fL (7.4-10.4); Platelet Count 186 10x3/uL (130-400); RBC Distribution Width 13.6 % (11.5-14.5); Red Blood Cell (RBC) Count 5.69 mill/uL (4.70-6.10)
[2024-09-01 05:54] LABS: Anion Gap 13 mmol/L (10-20); Calc. Creatinine Clearance 100 mL/min (70-130); Carbon Dioxide 20 mmol/L (23-31); Chloride 110 mmol/L (98-107); Estimated GFR 80; Glucose 159 mg/dL (83-110); Potassium 3.9 mmol/L (3.5-5.1); Sodium 139 mmol/L (136-145)
[2024-09-01 05:58] LABS: BUN (Urea Nitrogen) 16 mg/dL (8.4-25.7)
[2024-09-01] MEDS: methylPREDNISolone Sod Succ 40 MG VIAL IVP SCH (10:36)
[2024-09-01 11:17] VITALS: TEMP 97.7
[2024-09-01] MEDS: Azithromycin 500 MG in Sodium Chloride 0.9% 250 ML 250 ML IVPB SCH (13:37)
[2024-09-01] MEDS: cefTRIAXone\\ROCEPHIN 1 GM in Sodium Chloride 0.9% 100 ML IVPB SCH (15:01)
[2024-09-01 16:04] VITALS: BP 138/68
[2024-09-03 15:18] LABS: Cytoplasmic (C-ANCA) <1:20 titer (Neg:<1:20); Perinuclear (P-ANCA) <1:20 titer (Neg:<1:20)
[2024-09-03 17:12] LABS: Cytoplasmic (C-ANCA) <1:20 titer (Neg:<1:20); Myeloperoxidase AutoAbs <0.2 units (0.0-0.9); Perinuclear (P-ANCA) <1:20 titer (Neg:<1:20); Proteinase-3 AutoAbs Less than 0.2 units (0.0-0.9)
== END 2024-09-01 16:09 | disposition home or self-care (01) | DRG 203 ==
LOC: ERS 11:40 → 2NO 14:25
PROVIDERS: ADMIT Internal Medicine; ATTEND Family Medicine
DX: J40 Bronchitis, not specified as acute or chronic (principal); D75.1 Secondary polycythemia; G47.33 Obstructive sleep apnea (adult) (pediatric); Z90.49 Acquired absence of other specified parts of digestive tract; Z86.73 Personal history of transient ischemic attack (TIA), and cerebral infarction without residual deficits; Z87.891 Personal history of nicotine dependence
CPT/HCPCS: 36415; 71045; 71275; 80048; 80053; 83516; 84484; 85025; 85610; 85730; 86037; 86850; 86900; 86901; 93005; 96365; 96375; J0456; J0696; J2919; J7050